=== PATIENT | male | born 1995 | race African-American/Black ===

== ENCOUNTER 2023-08-05 17:40 | Emergency (ER) | payer SELFPAY ==
[~2023-08-05] VITALS: Ht 165.1 cm; Wt 127.0 kg
[2023-08-05] MEDS ORDERED: PREDNISONE50 MG PO (20:43)
[2023-08-05] MEDS ORDERED: METHOCARBAMOL500 M1 PO (20:43)
== END 2023-08-05 19:08 | disposition left against medical advice (07) ==
LOC: ED 17:40
DX: M54.50 Low back pain, unspecified (principal)

== ENCOUNTER 2023-08-05 19:36 | Emergency (ER) | payer SELFPAY ==
[~2023-08-05] VITALS: Ht 165.1 cm; Wt 129.3 kg
[2023-08-05] MEDS ORDERED: METHOCARBAMOL500 M1 PO (20:43)
[2023-08-05] MEDS ORDERED: PREDNISONE50 MG PO (20:43)
== END 2023-08-05 21:11 | disposition home or self-care (01) ==
LOC: ED 19:36
DX: M54.50 Low back pain, unspecified (principal); M79.605 Pain in left leg